=== PATIENT | female | born 1985 | race Two or more races ===

== ENCOUNTER 2024-03-05 21:01 | Emergency (ER) | payer MEDICAID, OTHER ==
[~2024-03-05] VITALS: Ht 167.6 cm; Wt 93.6 kg
[2024-03-05 21:36] LABS: Basophils # (auto) 0.2 10 ^3/uL (0-0.2); Eosinophils # (auto) 0.1 10 ^3/uL (0-0.8); Eosinophils % (auto) 0.7 % (0.0-7.0); Hematocrit 28.2 % (36.0-46.0); Lymphocytes # (auto) 5.2 10 ^3/uL (0.4-5.4); Lymphocytes % (auto) 33.5 % (10.0-50.0); Mean Corpuscular Hgb Conc. 28.4 g/dL (32.0-36.0); Mean Corpuscular Volume 66.7 fL (80.0-100.0); Monocytes # (auto) 1.1 10 ^3/uL (0-1.3); Monocytes % (auto) 7.3 % (0.0-12.0); Neutrophils # (auto) 8.9 10 ^3/uL (1.6-8.6); Neutrophils % (auto) 57.5 % (37.0-80.0); Nucleated Red Blood Cells % 0.3 %; Red Blood Cells 4.22 10^6/uL (4.0-5.20); Red Cell Distribution Width 19.7 % (11.8-14.3); White Blood Cell 15.5 10^3/uL (4.4-10.8)
[2024-03-05 21:50] LABS: Alanine Aminotransferase 47 U/L (7-40); Alkaline Phosphatase 124 U/L (46-116); Anion Gap 13 (5-15); Aspartate Aminotransferase 35 U/L (13-40); BUN/Creatinine Ratio 10.3 (10.0-20.0); Blood Urea Nitrogen 10 mg/dL (9-23); Calcium 9.4 mg/dL (8.5-10.1); Carbon Dioxide 18 mmol/L (20-30); Chloride 102 mmol/L (98-107); Glucose 222 mg/dL (74-106); Sodium 133 mmol/L (136-145)
[2024-03-05 21:51] LABS: Albumin 4.7 g/dL (3.2-4.8); Bilirubin, Total 0.4 mg/dL (0.2-1.0); Total Protein 8.6 g/dL (5.7-8.2)
[2024-03-06 01:33] LABS: Amphetamine Screen, Urine Neg (NEGATIVE); Benzodiazephine Screen, Urine Neg (NEGATIVE)
[2024-03-06 01:34] LABS: Barbiturate Scree,Urine Neg (NEGATIVE); Cannabinoid Screen, Urine Pos (NEGATIVE); Cocaine Screen, Urine Neg (NEGATIVE); Opiate Scree,Urine Neg (NEGATIVE); Phencyclidine Screen, Urine Neg (NEGATIVE)
[2024-03-06] MEDS: POTASSIUM CHL 20 Meq TABLET PO ONE (02:23)
[2024-03-06] MEDS: LORazepam 0.5 MG TAB PO ONE (02:24)
[2024-03-06 02:27] VITALS: BP 141/81; PULSE 105; RESP 14; TEMP 99.2; O2SAT 100
== END 2024-03-06 02:29 | disposition home or self-care (01) ==
LOC: ER 21:01
DX: R07.89 Other chest pain (principal); F41.9 Anxiety disorder, unspecified; E11.9 Type 2 diabetes mellitus without complications; F12.10 Cannabis abuse, uncomplicated; Z86.2 Personal history of diseases of the blood and blood-forming organs and certain disorders involving the immune mechanism
CPT/HCPCS: 36415; 71045; 80053; 80307; 84484; 85025; 93005

== ENCOUNTER 2024-04-10 08:53 | Inpatient (IN) | payer MEDICAID ==
[2024-04-10] VITALS (11 sets, daily range): BP systolic 105–125; BP diastolic 63–80; PULSE 79–95; RESP 12–83; TEMP 97.7–98.9; O2SAT 98–100
[~2024-04-10] VITALS: Ht 167.6 cm; Wt 96.0 kg
[2024-04-10 10:32] LABS: Basophils # (auto) 0.1 10 ^3/uL (0-0.2); Basophils % (auto) 1.2 % (0.0-2.0); Eosinophils # (auto) 0.3 10 ^3/uL (0-0.8); Eosinophils % (auto) 3.2 % (0.0-7.0); Hematocrit 20.2 % (36.0-46.0); Lymphocytes # (auto) 2.3 10 ^3/uL (0.4-5.4); Lymphocytes % (auto) 23.2 % (10.0-50.0); Mean Corpuscular Hemoglobin 17.2 pg (28.0-32.0); Mean Corpuscular Hgb Conc. 28.4 g/dL (32.0-36.0); Mean Corpuscular Volume 60.6 fL (80.0-100.0); Monocytes # (auto) 0.7 10 ^3/uL (0-1.3); Monocytes % (auto) 6.7 % (0.0-12.0); Neutrophils # (auto) 6.6 10 ^3/uL (1.6-8.6); Neutrophils % (auto) 65.7 % (37.0-80.0); Nucleated Red Blood Cells % 0.1 %; Red Blood Cells 3.34 10^6/uL (4.0-5.20); Red Cell Distribution Width 19.7 % (11.8-14.3)
[2024-04-10 10:35] LABS: Chloride 106 mmol/L (98-107); Potassium 3.6 mmol/L (3.5-5.1); Sodium 137 mmol/L (136-145)
[2024-04-10 10:36] LABS: Anion Gap 7 (5-15); Carbon Dioxide 24 mmol/L (20-30)
[2024-04-10 10:37] LABS: Calcium 9.2 mg/dL (8.7-10.4)
[2024-04-10 10:41] LABS: Glucose 173 mg/dL (74-106)
[2024-04-10 10:48] LABS: Hemoglobin 5.7 g/dL (12.2-16.2)
[2024-04-10 10:54] LABS: Urine Bacteria None Seen /hpf (None Seen)
[2024-04-10 11:05] LABS: BUN/Creatinine Ratio 6.8 (10.0-20.0); Blood Urea Nitrogen < 5 mg/dL (9-23)
[2024-04-10 11:17] LABS: Urine Blood 3+ /uL (Negative); Urine Clarity Clear (Clear); Urine Color Yellow (Yellow); Urine Mucus FEW (None Seen); Urine Protein, UAD TRACE (Negative); Urine Specific Gravity 1.024 (1.001-1.035); Urine Urobilinogen Normal (Negative); Urine WBC 4 /hpf (0 - 5)
[2024-04-10 11:43] LABS: Platelet Estimate Adequate
[2024-04-10 11:52] LABS: Hypochromia Marked; Ovalocytes FEW; Stomatocytes Few; Tear Drop Cells FEW
[2024-04-10] MEDS ORDERED: DOCUSATE SOD 100 MG CAP PO PRN (13:15)
[2024-04-10] MEDS ORDERED: ACETAMINOPHEN 325 MG TAB PO PRN (13:15)
[2024-04-10 13:36] LABS: % Iron Saturation 4.1 % (15-50)
[2024-04-10] MEDS: SODIUM CHLOR 0.9% PF (SALINE LOCK) 10ML VIAL/SYR IV SCH (14:00)
[2024-04-10] MEDS: HYDROcodone-ACET 5/325MG TAB PO PRN (18:03)
[2024-04-10] MEDS: ONDANSETRON HCL 4 MG/2 ML VIAL IV PRN (18:04)
[2024-04-10 23:36] LABS: Hematocrit 20.2 % (36.0-46.0)
[2024-04-10 23:39] LABS: Hemoglobin 5.8 g/dL (12.2-16.2)
[2024-04-11] VITALS (11 sets, daily range): BP systolic 104–125; BP diastolic 50–75; PULSE 72–88; RESP 15–18; TEMP 97.7–98.9; O2SAT 96–100
[2024-04-11] MEDS ORDERED: diphenhdrAMINE HCL 50 MG/1 ML VL IV PRN (10:00)
[2024-04-11] MEDS ORDERED: DEXTROSE (50%) 50ML SYRG IV PRN (10:00)
[2024-04-11] MEDS: ACCU-CHEK COMFORT CURVE STRIP VI SCH (12:01)
[2024-04-11] MEDS: SODIUM FERR GLUC 62.5MG/5ML 110 ML IV SCH (12:01)
[2024-04-11] MEDS: InsuLIN REG 1unit/0.01ml Soln (100units/ml) SC SCH (12:08)
[2024-04-11 12:23] LABS: Hematocrit 27.5 % (36.0-46.0); Hemoglobin 8.3 g/dL (12.2-16.2)
[2024-04-12 01:00] VITALS: BP_SYST 106; BP_SYST 124; BP_DIAS 60; BP_DIAS 77; PULSE 86; RESP 18; TEMP 98; O2SAT 93; O2SAT 95
[2024-04-12 06:01] LABS: Basophils # (auto) 0.1 10 ^3/uL (0-0.2); Eosinophils # (auto) 0.4 10 ^3/uL (0-0.8); Lymphocytes # (auto) 2.5 10 ^3/uL (0.4-5.4); Monocytes # (auto) 0.8 10 ^3/uL (0-1.3)
[2024-04-12 06:07] LABS: Eosinophils % (auto) 3.9 % (0.0-7.0); Hematocrit 26.7 % (36.0-46.0); Hemoglobin 8.1 g/dL (12.2-16.2); Lymphocytes % (auto) 24.3 % (10.0-50.0); Mean Corpuscular Hemoglobin 20.4 pg (28.0-32.0); Mean Corpuscular Hgb Conc. 30.4 g/dL (32.0-36.0); Mean Corpuscular Volume 67.2 fL (80.0-100.0); Monocytes % (auto) 7.7 % (0.0-12.0); Neutrophils # (auto) 6.6 10 ^3/uL (1.6-8.6); Neutrophils % (auto) 63.1 % (37.0-80.0); Nucleated Red Blood Cells % 0.1 %; Red Blood Cells 3.97 10^6/uL (4.0-5.20); White Blood Cell 10.4 10^3/uL (4.4-10.8)
[2024-04-12 06:10] LABS: Chloride 104 mmol/L (98-107); Sodium 135 mmol/L (136-145)
[2024-04-12 06:11] LABS: Anion Gap 6 (5-15); Carbon Dioxide 25 mmol/L (20-30)
[2024-04-12 06:12] LABS: Calcium 9.3 mg/dL (8.7-10.4)
[2024-04-12 06:13] LABS: INR 1.07 (0.9-1.15); Partial Thromboplastin Time 26.5 SEC (24.5-34.5); Prothrombin Time 11.3 sec (9.3-11.8)
[2024-04-12 06:16] LABS: Glucose 148 mg/dL (74-106)
[2024-04-12 06:17] LABS: BUN/Creatinine Ratio 6.3 (10.0-20.0); Blood Urea Nitrogen 5 mg/dL (9-23)
[2024-04-12 06:26] LABS: Red Cell Distribution Width 26.6 % (11.8-14.3)
[2024-04-12 07:53] LABS: Anisocytosis Slight; Hypochromia Moderate; Platelet Estimate Adequate
[2024-04-12 08:00] VITALS: BP 115/66; PULSE 84; RESP 17; TEMP 98.3; O2SAT 98
[2024-04-12] MEDS ORDERED: FER325T PO (10:09)
[2024-04-12 11:30] VITALS: BP 127/67; PULSE 72; RESP 18; TEMP 98.5; O2SAT 98
[2024-04-12 11:41] VITALS: BP 127/67; PULSE 72; RESP 18; TEMP 36.9; O2SAT 98
== END 2024-04-12 12:25 | disposition home or self-care (01) | DRG 532 ==
LOC: ER 08:53 → OVERFLOW 13:05 → EAST 17:17
PROVIDERS: ADMIT Internal Medicine; ATTEND Internal Medicine
PROC: 30233N1 Transfusion of Nonautologous Red Blood Cells into Peripheral Vein, Percutaneous Approach (ICD-10-PCS; principal; 2024-04-10)
DX: D25.9 Leiomyoma of uterus, unspecified (principal); D64.9 Anemia, unspecified; E11.9 Type 2 diabetes mellitus without complications; F12.90 Cannabis use, unspecified, uncomplicated; E66.9 Obesity, unspecified; F41.9 Anxiety disorder, unspecified; N92.0 Excessive and frequent menstruation with regular cycle; Z83.3 Family history of diabetes mellitus; Z68.34 Body mass index [BMI] 34.0-34.9, adult
CPT/HCPCS: 36415; 36430; 76856; 80048; 81001; 82728; 82962; 83036; 83540; 83550; 84702; 85014; 85018; 85025; 85610; 85730; 86850; 86900; 86901; 86920; 96374; 99291; G0378; J1815; J2405

== ENCOUNTER 2024-05-18 12:51 | Inpatient (IN) | payer MEDICAID ==
[~2024-05-18] VITALS: Ht 167.6 cm; Wt 94.9 kg
[~2024-05-18 12:51] MED LIST: FER325T PO
[2024-05-18] MEDS: ONDANSETRON ODT 4 MG TAB PO ONE (14:23)
[2024-05-18] MEDS: ACETAMINOPHEN 325 MG TAB PO ONE (14:23)
[2024-05-18 14:30] LABS: Basophils # (auto) 0.1 10 ^3/uL (0-0.2); Eosinophils # (auto) 0.1 10 ^3/uL (0-0.8); Hemoglobin 7.1 g/dL (12.2-16.2); Monocytes # (auto) 0.7 10 ^3/uL (0-1.3)
[2024-05-18 14:31] LABS: Urine Bacteria None Seen /hpf (None Seen)
[2024-05-18 14:32] LABS: Basophils % (auto) 1.3 % (0.0-2.0); Eosinophils % (auto) 1.1 % (0.0-7.0); Hematocrit 24.2 % (36.0-46.0); Lymphocytes # (auto) 2.3 10 ^3/uL (0.4-5.4); Mean Corpuscular Hemoglobin 19.2 pg (28.0-32.0); Mean Corpuscular Hgb Conc. 29.3 g/dL (32.0-36.0); Mean Corpuscular Volume 65.7 fL (80.0-100.0); Neutrophils % (auto) 60.6 % (37.0-80.0); Nucleated Red Blood Cells % 0.2 %; Platelet Count (auto) 361 10^3/uL (140-450); Red Blood Cells 3.68 10^6/uL (4.0-5.20); White Blood Cell 8.3 10^3/uL (4.4-10.8)
[2024-05-18 14:35] LABS: Red Cell Distribution Width 23.2 % (11.8-14.3)
[2024-05-18 15:27] LABS: Alanine Aminotransferase 27 U/L (7-40); Albumin 4.5 g/dL (3.2-4.8); Alkaline Phosphatase 108 U/L (46-116); Anion Gap 7 (5-15); Aspartate Aminotransferase 16 U/L (13-40); Blood Urea Nitrogen 11 mg/dL (9-23); Calcium 9.5 mg/dL (8.7-10.4); Carbon Dioxide 24 mmol/L (20-30); Chloride 108 mmol/L (98-107); Glucose 163 mg/dL (74-106); Potassium 4.4 mmol/L (3.5-5.1); Sodium 139 mmol/L (136-145)
[2024-05-18 15:28] LABS: Bilirubin, Total 0.2 mg/dL (0.2-1.0); Total Protein 7.8 g/dL (5.7-8.2)
[2024-05-18 15:31] LABS: Urine Blood Negative /uL (Negative); Urine Clarity Turbid (Clear); Urine Color Light-Yellow (Yellow); Urine Protein, UAD TRACE (Negative); Urine Specific Gravity 1.023 (1.001-1.035); Urine Urobilinogen Normal (Negative); Urine WBC 8 /hpf (0 - 5)
[2024-05-18 15:54] LABS: Anisocytosis Moderate; Hypochromia Moderate; Platelet Estimate Adequate
[2024-05-18 18:00] VITALS: PULSE 70; RESP 18; O2SAT 98
[2024-05-18 19:45] VITALS: PULSE 70; RESP 16; O2SAT 98
[2024-05-18 20:20] VITALS: BP 111/44; PULSE 71; RESP 100; TEMP 98.4
[2024-05-18 20:45] VITALS: BP 116/62; PULSE 79; RESP 14; TEMP 98.2
[2024-05-18] MEDS: diphenhdrAMINE HCL 50 MG/1 ML VL IV ONE (21:08)
[2024-05-18 21:38] VITALS: BP 127/62; PULSE 77; RESP 18; TEMP 98.4
[2024-05-18 21:50] VITALS: BP 116/62; PULSE 71; RESP 14; TEMP 98.4
[2024-05-18] MEDS: SODIUM CHLORIDE 0.9% 1,000 ML IV ONE (21:55)
[2024-05-18] MEDS: DexAMETHasone SOD PHOS 10MG/1ML VIAL INJ IV ONE (21:58)
[2024-05-18] MEDS: ONDANSETRON HCL 4 MG/2 ML VIAL IV ONE (21:58)
[2024-05-19] VITALS (7 sets, daily range): BP systolic 110–124; BP diastolic 61–74; PULSE 74–81; RESP 14–19; TEMP 97.4–98.3; O2SAT 94–99
[2024-05-19] MEDS: MECLIZINE HCL 25 MG TAB PO ONE (00:56)
[2024-05-19] MEDS: KETOROLAC TROMETH 30 MG/ML 1ML VIAL IV ONE (00:56)
[2024-05-19] MEDS ORDERED: ONDANSETRON HCL 4 MG/2 ML VIAL IV PRN (01:15)
[2024-05-19] MEDS ORDERED: DOCUSATE SOD 100 MG CAP PO PRN (01:15)
[2024-05-19] MEDS ORDERED: DEXTROSE (50%) 50ML SYRG IV PRN (01:15)
[2024-05-19] MEDS ORDERED: MECLIZINE HCL 25 MG TAB PO PRN (01:15)
[2024-05-19] MEDS: MECLIZINE HCL 25 MG TAB ONE (01:18)
[2024-05-19] MEDS: SODIUM CHLORIDE 0.9% 1,000 ML IV SCH (01:25)
[2024-05-19 05:24] LABS: Basophils # (auto) 0.1 10 ^3/uL (0-0.2); Basophils % (auto) 0.6 % (0.0-2.0); Eosinophils # (auto) 0 10 ^3/uL (0-0.8); Lymphocytes # (auto) 0.8 10 ^3/uL (0.4-5.4); Monocytes # (auto) 0.1 10 ^3/uL (0-1.3)
[2024-05-19 05:26] LABS: Alanine Aminotransferase 22 U/L (7-40); Albumin 4.1 g/dL (3.2-4.8); Alkaline Phosphatase 103 U/L (46-116); Anion Gap 6 (5-15); Aspartate Aminotransferase 16 U/L (13-40); BUN/Creatinine Ratio 11.4 (10.0-20.0); Blood Urea Nitrogen 10 mg/dL (9-23); Calcium 8.9 mg/dL (8.7-10.4); Carbon Dioxide 22 mmol/L (20-30); Chloride 107 mmol/L (98-107); Glucose 271 mg/dL (74-106); Hematocrit 23.8 % (36.0-46.0); Hemoglobin 7.2 g/dL (12.2-16.2); Lymphocytes % (auto) 8.1 % (10.0-50.0); Mean Corpuscular Hemoglobin 20.1 pg (28.0-32.0); Mean Corpuscular Hgb Conc. 30.3 g/dL (32.0-36.0); Mean Corpuscular Volume 66.4 fL (80.0-100.0); Neutrophils # (auto) 8.6 10 ^3/uL (1.6-8.6); Neutrophils % (auto) 90.3 % (37.0-80.0); Nucleated Red Blood Cells % 0.3 %; Platelet Count (auto) 333 10^3/uL (140-450); Potassium 4.3 mmol/L (3.5-5.1); Red Blood Cells 3.59 10^6/uL (4.0-5.20); Sodium 135 mmol/L (136-145); White Blood Cell 9.6 10^3/uL (4.4-10.8)
[2024-05-19 05:27] LABS: Bilirubin, Total 0.5 mg/dL (0.2-1.0); Total Protein 7.4 g/dL (5.7-8.2)
[2024-05-19 05:33] LABS: Red Cell Distribution Width 24.3 % (11.8-14.3)
[2024-05-19] MEDS ORDERED: MORPHINE SULFATE INJ 2 MG/ml SYRG IV PRN (06:00)
[2024-05-19] MEDS ORDERED: NITROGLYCERIN 0.4 MG SL TAB SL PRN (06:00)
[2024-05-19] MEDS: ACCU-CHEK COMFORT CURVE STRIP VI SCH (06:43)
[2024-05-19] MEDS: InsuLIN REG 1unit/0.01ml Soln (100units/ml) SC SCH ×2 (06:51→21:46)
[2024-05-19] MEDS: ACETAMINOPHEN 325 MG TAB PO PRN (07:40)
[2024-05-19] MEDS: HYDROcodone-ACET 5/325MG TAB PO PRN (09:10)
[2024-05-19] MEDS ORDERED: METF-370 PO (11:15)
[2024-05-19] MEDS: diphenhdrAMINE HCL 50 MG/1 ML VL IV PRN (21:23)
[2024-05-20] VITALS (10 sets, daily range): BP systolic 104–132; BP diastolic 0–85; PULSE 58–76; RESP 12–18; TEMP 97.8–98.6; O2SAT 96–100
[2024-05-20 06:34] LABS: Basophils # (auto) 0 10 ^3/uL (0-0.2); Eosinophils # (auto) 0 10 ^3/uL (0-0.8); Eosinophils % (auto) 0.1 % (0.0-7.0); Lymphocytes # (auto) 2.4 10 ^3/uL (0.4-5.4)
[2024-05-20 06:37] LABS: Alanine Aminotransferase 18 U/L (7-40); Albumin 3.9 g/dL (3.2-4.8); Alkaline Phosphatase 88 U/L (46-116); Anion Gap 8 (5-15); Aspartate Aminotransferase 14 U/L (13-40); BUN/Creatinine Ratio 10.3 (10.0-20.0); Basophils % (auto) 0.5 % (0.0-2.0); Bilirubin, Total 0.3 mg/dL (0.2-1.0); Blood Urea Nitrogen 9 mg/dL (9-23); Calcium 9.1 mg/dL (8.7-10.4); Carbon Dioxide 24 mmol/L (20-30); Chloride 106 mmol/L (98-107); Glucose 189 mg/dL (74-106); Hematocrit 22.4 % (36.0-46.0); Lymphocytes % (auto) 24.4 % (10.0-50.0); Mean Corpuscular Hgb Conc. 30.2 g/dL (32.0-36.0); Monocytes # (auto) 0.6 10 ^3/uL (0-1.3); Monocytes % (auto) 6.4 % (0.0-12.0); Neutrophils # (auto) 6.8 10 ^3/uL (1.6-8.6); Neutrophils % (auto) 68.6 % (37.0-80.0); Nucleated Red Blood Cells % 0.4 %; Platelet Count (auto) 317 10^3/uL (140-450); Potassium 3.8 mmol/L (3.5-5.1); Sodium 138 mmol/L (136-145); Total Protein 6.9 g/dL (5.7-8.2)
[2024-05-20 07:26] LABS: Hemoglobin 6.8 g/dL (12.2-16.2); Red Cell Distribution Width 24.3 % (11.8-14.3)
[2024-05-20 12:55] LABS: Urine Bacteria FEW /hpf (None Seen); Urine Blood Negative /uL (Negative); Urine Clarity Turbid (Clear); Urine Protein, UAD Negative (Negative); Urine Specific Gravity 1.011 (1.001-1.035); Urine Urobilinogen Normal (Negative); Urine WBC 11 /hpf (0 - 5); Urine pH 6.5 (5.0-9.0)
[2024-05-20 12:58] LABS: Urine Color Yellow (Yellow)
[2024-05-20] MEDS: methylPREDNISolone SOD SUCC 125 MG/2 ML VL IV ONE (14:47)
[2024-05-20] MEDS: diphenhdrAMINE HCL 50 MG/1 ML VL IV ONE (14:47)
[2024-05-21 01:00] VITALS: BP 114/45; PULSE 55; RESP 18; TEMP 98.3; O2SAT 99
[2024-05-21 05:00] VITALS: BP 104/56; PULSE 82; RESP 17; TEMP 98.1; O2SAT 99
[2024-05-21 07:30] LABS: Basophils # (auto) 0 10 ^3/uL (0-0.2); Eosinophils # (auto) 0 10 ^3/uL (0-0.8); Monocytes # (auto) 0.7 10 ^3/uL (0-1.3)
[2024-05-21 07:32] LABS: Basophils % (auto) 0.2 % (0.0-2.0); Hematocrit 28.9 % (36.0-46.0); Lymphocytes # (auto) 1.8 10 ^3/uL (0.4-5.4); Lymphocytes % (auto) 11.8 % (10.0-50.0); Mean Corpuscular Volume 67.5 fL (80.0-100.0); Monocytes % (auto) 4.6 % (0.0-12.0); Neutrophils # (auto) 12.4 10 ^3/uL (1.6-8.6); Neutrophils % (auto) 83.4 % (37.0-80.0); Nucleated Red Blood Cells % 0.5 %; Platelet Count (auto) 367 10^3/uL (140-450); Red Blood Cells 4.28 10^6/uL (4.0-5.20); White Blood Cell 14.8 10^3/uL (4.4-10.8)
[2024-05-21 07:43] LABS: Red Cell Distribution Width 26.6 % (11.8-14.3)
[2024-05-21 08:00] VITALS: PULSE 66
[2024-05-21 09:00] VITALS: BP 124/76; PULSE 52; RESP 18; TEMP 98.7; O2SAT 100
[2024-05-21] MEDS ORDERED: FERR-7 PO (12:28)
[2024-05-21 13:00] VITALS: BP 116/69; PULSE 66; RESP 16; TEMP 98.1; O2SAT 99
== END 2024-05-21 15:08 | disposition home or self-care (01) | DRG 663 ==
LOC: ER 12:51 → TELE 05-19 05:50 → TELE-WESTW 05-19 05:50
PROVIDERS: ADMIT Nurse Practitioner Family; ATTEND Family Medicine
PROC: 30233N1 Transfusion of Nonautologous Red Blood Cells into Peripheral Vein, Percutaneous Approach (ICD-10-PCS; principal; 2024-05-18)
DX: T80.89XA Other complications following infusion, transfusion and therapeutic injection, initial encounter (principal); D25.1 Intramural leiomyoma of uterus; D64.9 Anemia, unspecified; E11.65 Type 2 diabetes mellitus with hyperglycemia; E66.01 Morbid (severe) obesity due to excess calories; N92.0 Excessive and frequent menstruation with regular cycle; I10 Essential (primary) hypertension; Z68.33 Body mass index [BMI] 33.0-33.9, adult; Z83.3 Family history of diabetes mellitus; Y84.8 Other medical procedures as the cause of abnormal reaction of the patient, or of later complication, without mention of misadventure at the time of the procedure; Y92.89 Other specified places as the place of occurrence of the external cause
CPT/HCPCS: 36415; 76856; 80053; 81001; 82962; 84484; 84702; 85025; 86850; 86900; 86901; 86920; 93005; 96374; 96375; G0378; J1100; J1815; J1885; J2405; Q0162

== ENCOUNTER 2024-06-08 16:30 | Emergency (ER) | payer MEDICAID ==
[~2024-06-08] VITALS: Ht 167.6 cm; Wt 93.1 kg
[~2024-06-08 16:30] MED LIST changes: +FERR-7 PO; +METF-370 PO
[2024-06-08 17:25] LABS: Basophils # (auto) 0.1 10 ^3/uL (0-0.2); Hemoglobin 8.1 g/dL (12.2-16.2); Monocytes # (auto) 0.6 10 ^3/uL (0-1.3)
[2024-06-08 17:27] LABS: Eosinophils # (auto) 0.1 10 ^3/uL (0-0.8); Eosinophils % (auto) 1.7 % (0.0-7.0); Hematocrit 26.8 % (36.0-46.0); Lymphocytes # (auto) 1.6 10 ^3/uL (0.4-5.4); Lymphocytes % (auto) 19.6 % (10.0-50.0); Mean Corpuscular Hemoglobin 20.4 pg (28.0-32.0); Mean Corpuscular Hgb Conc. 30.1 g/dL (32.0-36.0); Mean Corpuscular Volume 67.9 fL (80.0-100.0); Monocytes % (auto) 7.8 % (0.0-12.0); Neutrophils # (auto) 5.8 10 ^3/uL (1.6-8.6); Neutrophils % (auto) 69.9 % (37.0-80.0); Nucleated Red Blood Cells % 0.3 %; Platelet Count (auto) 290 10^3/uL (140-450); Red Blood Cells 3.95 10^6/uL (4.0-5.20); Red Cell Distribution Width 25.7 % (11.8-14.3); White Blood Cell 8.3 10^3/uL (4.4-10.8)
[2024-06-08 18:08] LABS: INR 1.08 (0.9-1.15); Partial Thromboplastin Time 26.9 SEC (24.5-34.5); Prothrombin Time 11.4 sec (9.3-11.8)
[2024-06-08 18:35] VITALS: BP 112/70; PULSE 100; RESP 18; O2SAT 98
== END 2024-06-08 18:36 | disposition home or self-care (01) ==
LOC: ER 16:30
DX: D64.9 Anemia, unspecified (principal); E11.9 Type 2 diabetes mellitus without complications; D69.6 Thrombocytopenia, unspecified; D25.9 Leiomyoma of uterus, unspecified
CPT/HCPCS: 36415; 85025; 85610; 85730; 86850; 86900; 86901; 93005